=== PATIENT | female | born 1940 | race Caucasian/White ===

== ENCOUNTER 2018-08-20 13:39 | Emergency (ER) | payer MEDICARE, OTHER ==
[~2018-08-20] VITALS: Ht 152.4 cm; Wt 48.0 kg
[~2018-08-20 13:39] MED LIST: LISI2.5T PO
[2018-08-20 13:42] VITALS: BP 140/70
== END 2018-08-20 15:46 | disposition home or self-care (01) ==
LOC: ED 15:40
DX: L03.116 Cellulitis of left lower limb (principal); I10 Essential (primary) hypertension
CPT/HCPCS: 99284